=== PATIENT | female | born 1965 | race Caucasian/White ===

== ENCOUNTER 2016-10-18 12:20 | Outpatient (CLI) | payer OTHER | END 2016-10-18 12:21 | LOC: LAB 12:20 | PROVIDERS: ATTEND Internal Medicine Endocrinology, Diabetes & Metabolism | DX: E89.0 Postprocedural hypothyroidism (principal) | CPT/HCPCS: 36415; 84439; 84443 ==

== ENCOUNTER 2019-06-30 11:50 | Emergency (ER) | payer OTHER ==
[2019-06-30] MEDS ORDERED: diphenhydrAMINE HCL 50 MG/ML VIAL IVP ONE (11:58)
[2019-06-30] MEDS ORDERED: methylPREDNISolone SOD SUCC 125 MG/2 ML VIAL IVP ONE (11:58)
--- NOTE | 2019-06-30 11:58 | ED Physician Documentation ---
General Adult - HISTORIAN Historian: patient - HPI Stated Complaint: allergic reaction to her allergy drops Chief Complaint: Allergic Reaction Onset: minutes (30) Timing: better Severity: mild Further Comments: yes (she reports that she had an allergy drop in allergy clinic and she was kept for observation and doing well on her way home from she was noting she was feeling her throat was swelling and she had more phglem in her throat than usual. No hives. She did take 20 of liquid benadryl and a OTC allergy pill) - ROS CONST: no problems GI/: none MS/SKIN/LYMPH: none NEURO/PSYCH: denies: headache - PAST HX Past History: none Immunizations: UTD Allergies/Adverse Reactions: Allergies Allergy/AdvReac Type Severity Reaction Status Date / Time prochlorperazine Allergy Severe panic Verified 06/30/19 12:11 [From Compazine] attacks prochlorperazine edisylate Allergy Severe panic Verified 06/30/19 12:11 [From Compazine] attacks prochlorperazine maleate Allergy Severe panic Verified 06/30/19 12:11 [From Compazine] attacks lisinopril Allergy Cough Verified 06/30/19 12:11 Home Medications: Ambulatory Orders Medication Instructions Recorded Metformin HCl 1 tab PO DAILY 06/30/19 Montelukast Sodium [Singulair] 1 tab PO DAILY 06/30/19 - SOCIAL HX Smoking History: non-smoker Alcohol Use: none Drug Use: none - FAMILY HX Family History: No - REVIEWED ASSESSMENTS Nursing Assessment Reviewed: Yes Vitals Reviewed: Yes Progress - Progress Progress: 1230: she states symptoms are improving. DG 1232: call into allergy clinic they will call back DG 1305: Discussed case with Kandi STONE at allergy clinic she said she is aware and no further orders DG General Adult Physical Exam - PHYSICAL EXAM GENERAL APPEARANCE: mild distress EENT: eye inspection normal, ENT inspection normal, pharynx normal, no signs of dehydration NECK: normal inspection RESPIRATORY: no resp distress, chest non-tender, breath sounds normal CVS: reg rate & rhythm ABDOMEN: soft, normal bowel sounds, no distension, non-tender BACK: normal inspection, no CVA tenderness SKIN: warm/dry EXTREMITIES: non-tender, normal range of motion, no evidence of injury, no edema NEURO: oriented X3 Discharge Clincal Impression: Allergic reaction caused by a drug Qualifiers: Encounter type: initial encounter Qualified Code(s): T78.40XA - Allergy, unspecified, initial encounter Referrals: Primary Doctor,No [Primary Care Provider] - 2 Days Comments: 1. Follow up with allergy clinic 2. OTC Meds as directed as needed for symptom control 3. Return to ER for any increased concerns Condition: Stable Disposition: 01 HOME, SELF-CARE Decision to Admit: NO Date of Decison to Admit: 06/30/19 Decision Time: 13:05
[2019-06-30] MEDS ORDERED: 0.9 % SODIUM CHLORIDE 1,000 ML IV ONE (11:59)
[2019-06-30] MEDS ORDERED: FAMOTIDINE 20 MG/2 ML VIAL IV ONE (11:59)
[2019-06-30] MEDS ORDERED: IPRATROPIUM/ALBUTEROL SULFATE 3 ML AMPUL.NEB NEB ONE (12:05)
[2019-06-30 12:15] LABS: BASOPHILS % 0.3 % (0.0-1.5); NEUTROPHILS # 5.4 # k/uL (1.4-7.7)
[2019-06-30 12:20] LABS: eGFR (Non-African) > 60
[2019-06-30 13:11] VITALS: BP 143/65
== END 2019-06-30 13:09 | disposition home or self-care (01) ==
LOC: ED 11:50
DX: T78.40XA Allergy, unspecified, initial encounter (principal)
CPT/HCPCS: 80053; 85025; 96374; 96375; 99282; 99284; J1200; J2930; J7030; 94640; S1016

== ENCOUNTER 2019-08-02 13:28 | Outpatient (CLI) | payer OTHER ==
--- NOTE | 2019-08-02 14:23 | Diagnostic Imaging Report ---
PATIENT MR#: [id number] PATIENT PATIENT NAME: PRANAV SANCHEZ DATE OF : 1965 REFERRING PHYSICIAN: Waldo Delarosa EXAM DATE: 08/02/2019 ACCESSION NUMBER: [id number] EXAM DESCRIPTION: CHEST 2VIEW HISTORY: COUGH X 2-3 WEEKS. COMPARISON: None provided. CHEST RADIOGRAPH, FRONTAL AND LATERAL: Upper mediastinum: Not widened. Heart: No cardiomegaly. Lungs: There is a 4 mm nodule in the lateral aspect of the right upper lobe, with adjacent linear sca rring. Left lower lobe atelectasis. No lobar infiltrate, pulmonary edema, pneumothorax or significant effusion. Skeleton: No acute findings. IMPRESSION: 4 mm right upper lobe nodule associated with scarring or atelectasis. Recommend further e valuation with chest CT. Findings were discussed by phone with Dr. Delarosa at the time of interpretation. Read by: Dr. Prabhu Mcghee Transcribed by: Prabhu Mcghee Transcribed Date: 08/02/2019 2:22:28 PM Electronically signed by: Dr. Prabhu Mcghee Date signed: 08/02/2019 2:22:28 PM
== END 2019-08-02 13:38 ==
LOC: RAD 13:28
PROVIDERS: ATTEND Family Medicine
DX: R05 Cough (principal)